=== PATIENT | female | born 1970 | race Two or more races ===

== ENCOUNTER 2024-08-31 12:02 | Emergency (ER) | payer SELFPAY ==
[~2024-08-31] VITALS: Ht 152.4 cm; Wt 54.5 kg
[2024-08-31 16:26] VITALS: BP 120/82; PULSE 72; RESP 18; TEMP 98.8; O2SAT 99
== END 2024-08-31 16:29 | disposition home or self-care (01) ==
LOC: EDBD 12:02 → ER 12:10
DX: R20.0 Anesthesia of skin (principal); R55 Syncope and collapse; Y04.2XXA Assault by strike against or bumped into by another person, initial encounter; Y93.89 Activity, other specified; Y92.89 Other specified places as the place of occurrence of the external cause; Y99.8 Other external cause status
CPT/HCPCS: 70450; 70486